=== PATIENT | female | born 1950 | race Caucasian/White ===

== ENCOUNTER → 2016-07-23 | Day surgery (SDC) | payer MEDICARE, BC ==
--- NOTE | 2016-07-23 09:30 | NUR ---
Versed and fentanyl administered by DIRECTOR OF SERVICES. See anesthesia notes.
== END ==
LOC: MSO 07:57
DX: H25.11 Age-related nuclear cataract, right eye (principal); I10 Essential (primary) hypertension
CPT/HCPCS: 00142; A9270-GY; J0171; J2250; J3010; V2632; V2797